=== PATIENT | female | born 1965 | race Caucasian/White ===

== ENCOUNTER 2020-07-01 13:41 | Day surgery (SDC) | payer OTHER ==
[~2020-07-01] VITALS: Ht 165.1 cm; Wt 74.8 kg
[~2020-07-01 13:41] MED LIST: ALDACTONE25 MG PO; LEXAPRO10 MG PO; LIPITOR40 MG PO
[2020-07-01 14:18] LABS: CALCIUM 9.7 mg/dL (8.5-10.1); CARBON DIOXIDE 25.3 mmol/L (21.0-32.0); POTASSIUM - SERUM 4.3 mmol/L (3.5-5.1)
[2020-07-01 14:19] LABS: EOSINOPHILS 7.3 % (0-7); HEMATOCRIT 45.5 % (36.0-48.0); IMMATURE GRANULOCYTES 0.3 % (0-5); LYMPHOCYTE ABS# 1.43 10x3/uL (1.18-3.74); LYMPHOCYTES 19.4 % (15-50); MCH 31.4 pg (26.0-34.0); MCV 95.2 fL (80.0-100.0); MEAN PLATELET VOLUME 11.4 fL (7.4-10.4); MONOCYTES 7.6 % (2-11); NEUTROPHIL ABS# 4.74 10x3/uL (1.56-6.13); NEUTROPHILS 64.4 % (40-80); PLATELET COUNT 245 10x3/uL (130-400); RBC 4.78 10x6/uL (4.00-5.40); RDW 12.6 % (11.5-14.5); WBC 7.4 10x3/uL (4.8-10.8)
[2020-07-01 14:34] VITALS: BP 139/83; Ht 165.1 cm; Wt 74.8 kg
--- NOTE | 2020-07-01 20:25 | NUR ---
BLADDER SCAN PERFORMED DUE TO PATIENT'S INABILITY TO VOID. BLADDER SCAN SHOWS APPROX 452 CC URINE IN BLADDER. DR LLANOS PAGED REGARDING INABILITY TO VOID. [address] LLANOS, ORDER RECEIVED FOR IN AND OUT CATH. 2044 AFTER EXPLANATION OF PROCEDURE, IN AND OUT CATHETERIZATION PERFORMED BY THIS NURSE. 350 CC CLEAR YELLOW URINE DRAINED. PATIENT TOLERATED PROCEDURE WELL. LEFT HAND PIV DC'D WITH TIP INTACT. PATIENT DRESSING IN PERSONAL CLOTHING. DC INSTRUCTIONS REVIEWED. 2099 DISCHARGED HOME VIA WHEELCHAIR TO PRIVATE VEHICLE WITH SPOUSE
--- NOTE | 2020-07-02 14:30 | OP ---
PATIENT NAME: ASHLEY WATERS MEDICAL RECORD: [id number] :69 LOCATION:D[facility] ADMISSION DATE: SURGEON: DANNIE LLANOS MD DATE OF OPERATION: 07/01/2020 PREOPERATIVE DIAGNOSES: 1. Intractable symptomatic internal and external hemorrhoids. 2. Internal hemorrhoidal bleeding. 3. Third-degree prolapse of a single internal hemorrhoid. POSTOPERATIVE DIAGNOSES: 1. Intractable symptomatic internal and external hemorrhoids. 2. Internal hemorrhoidal bleeding. 3. Third-degree prolapse of a single internal hemorrhoid. 4. Persistent prolapse of the hemorrhoid after the procedure for prolapse and hemorrhoids. PROCEDURE: 1. Procedure for prolapse and hemorrhoids. 2. External hemorrhoidectomy. SURGEON: Dannie Llanos MD MILK TREATER: None. BLOOD LOSS: Less than 25 cc. ANESTHESIA: General. COMPLICATIONS: None. The risks, possible complications, and alternatives of the procedure were explained to the patient. She elects to proceed. We specifically discussed other options including a hemorrhoidectomy and internal hemorrhoidal banding. We discussed the pathophysiology of hemorrhoids as well as how that can be fixed. The patient was conveyed to the operating room electively on 07/01/2020. General anesthesia was induced by the anesthesia staff. The patient was placed in the lithotomy position. The buttocks were taped laterally. The perineum and anus were sterilely prepped and draped. The PPH dilator retractor was placed and the retractor was sewn in place to the surrounding anoderm with 2-0 silks. Mucosal pursestring suture of 2-0 Prolene was applied 1 cm cephalad to the clear retractor. The PPH stapling device was inserted with the anvil cephalad to the pursestring suture, which was then tightened and tied. Stapling device was engaged. It was held in place for 3 minutes and then fired. The stapling device was removed. There was an entire donut of rectal mucosal tissue within the stapling device. Bleeding along the anastomotic staple line was controlled with [id number] 3-0 Vicryl. I checked the vagina for any injury to the back wall of the vagina and we noted no evidence of injury to the back wall of the vagina and no evidence of a rectovaginal fistula. A combination of steroid preparation and Marcaine were used to infiltrate the perianal tissues. Gelfoam was applied within the anus and lower rectum. Topical anesthetic cream was applied to the external hemorrhoids. OPERATIVE REPORT [id number] ASHLEY WATERS The patient was then extubated and conveyed to post-anesthesia care unit where she was in stable condition. She will be dismissed home on Valium, hydrocodone, as well as Colace. I will see her in the office in 2 to 3 weeks. Discharge instructions were given to the patient verbally by me. TRANSINT:[id number] Voice Confirmation ID: [id number] DOCUMENT ID: [id number] DANNIE LLANOS MD at 1430 CC: [id number] DICTATION DATE: 07/01/201955 [facility]: 07/02/20 0021 [facility] 07/01/20 [id number] [place] [address]
--- NOTE | 2020-07-02 14:30 | HP ---
PATIENT: ASHLEY WATERS MEDICAL RECORD: [id number] ACCOUNT: [id number] LOCATION:[facility] : 69 ADMISSION DATE: 07/01/20 PCP: CARITO SCHOFIELD MD HISTORY AND PHYSICAL EXAMINATION HISTORY OF PRESENT ILLNESS: The patient has intractable symptomatic internal and external hemorrhoids. She has anal pain as well as anal itching. She has to return to the restroom to wipe after having a bowel movement. No fecal incontinence per se, however. She does have internal hemorrhoidal bleeding and has bleeding with most bowel movements. We have discussed hemorrhoidectomy as well as internal hemorrhoidal banding and a procedure for prolapse and hemorrhoids. She has elected for a procedure for prolapse and hemorrhoids and possible external hemorrhoidectomy at one site. We discussed the pathophysiology of hemorrhoids as well as how they can be repaired. ALLERGIES: No known drug allergies. HOME MEDICATIONS: Reviewed. PAST MEDICAL AND SURGICAL HISTORY: Depression, hyperlipidemia, hypercholesterolemia. PHYSICAL EXAMINATION: GENERAL: The patient does not appear acutely ill. She does not appear chronically ill. The entire physical examination was performed with the presence of a female nurse. EARS: External ears appear normal. EYES: Extraocular movements are intact. NECK: Trachea is midline. CHEST: No intercostal retractions. PULMONARY: Nonlabored. No stridor. IMPRESSION: 1. Intractable symptomatic internal and external hemorrhoids. 2. Third-degree internal hemorrhoidal prolapse of a single hemorrhoid. PLAN: Procedure for prolapse and hemorrhoids with possible external hemorrhoidectomy at one site. The risks, possible complications, and alternatives of procedure were explained to the patient. She elected to proceed. The discussion specifically included, but was not limited to, bleeding requiring emergency reoperation, infection, rectal injury. TRANSINT:[id number] Voice Confirmation ID: [id number] DOCUMENT ID: [id number] KATHARINE LLANOS MD at 1430 CC: ROSITA LEVINE MD [id number] DICTATION DATE: 07/01/20 1527 [facility]: 07/01/20 1538 [facility] 07/01/20 [id number] [place] [address]
== END 2020-07-01 21:00 | disposition home or self-care (01) ==
LOC: D.OPS 13:41
PROVIDERS: Anesthesiology; ATTEND Surgery
DX: K64.4 Residual hemorrhoidal skin tags (principal); K64.8 Other hemorrhoids; K64.2 Third degree hemorrhoids; F32.9 Major depressive disorder, single episode, unspecified; E78.5 Hyperlipidemia, unspecified; E78.00 Pure hypercholesterolemia, unspecified